=== PATIENT | female | born 1960 | race Caucasian/White ===

== ENCOUNTER 2021-10-13 01:10 | Emergency (ER) | payer OTHER ==
[2021-10-13] MEDS ORDERED: Aspirin 81 MG Tab.Chew PO ONE (01:30)
[2021-10-13] MEDS ORDERED: GI Cocktail Oral Solution 30 ML PO ONE (01:41)
== END 2021-10-13 02:20 | disposition home or self-care (01) ==
LOC: VM.ED 01:10
DX: K21.00 Gastro-esophageal reflux disease with esophagitis, without bleeding (principal)
CPT/HCPCS: 93005; 99285; A9270-GY